=== PATIENT | male | born 1995 | race Caucasian/White ===

== ENCOUNTER 2017-10-02 20:18 | Emergency (ER) | payer BC, OTHER ==
--- NOTE | 2017-10-02 21:38 | EDM.PDOCBH ---
ED HPI GENERAL MEDICAL PROBLEM - General Chief Complaint: Behavioral/Psych Stated Complaint: psych Time Seen by Provider: 10/02/17 20:35 Source of Information: Reports: Patient, Police History Limitations: Reports: No Limitations - History of Present Illness INITIAL COMMENTS - FREE TEXT/NARRATIVE: Patient brought in via PD for evaluation after he called them and stated he wanted to self admit to the [facility]. It is reported that during an argument with his parents, he threatened to leave and hang himself. He currently denies he has suicidal ideations, no plan, no prior attempts. He states he just said that and called the police to get away from the situation as he was very upset, angry, and anxious. History of depression, bipolar disorder, anxiety. Supposed to be taking zyprexa but has not been doing so. Also has a klonopin prescription that is supposed to be BID prn, but according to his mother this is gone. Goes to [facility] for primary care. He appears anxious, and PD are here with him. Onset: Today, Sudden Associated Symptoms: Reports: No Other Symptoms - Related Data Allergies Allergy/AdvReac Type Severity Reaction Status Date / Time No Known Allergies Allergy Verified 10/12/13 19:18 Home Meds: Home Meds EPINEPHrine [Epipen] 0.3 mg IM ASDIRECTED PRN 10/12/13 [History] ClonazePAM [KlonoPIN] 1 tab PO BID PRN 10/02/17 [History] OLANZapine [Olanzapine] 1 tab PO DAILY 10/02/17 [History] Past Medical History - Past Health History Medical/Surgical History: Denies Medical/Surgical History Psychiatric History: Reports: Anxiety, Bipolar, Depression Social & Family History - Tobacco Use Smoking Status *Q: Current Every Day Smoker Years of Tobacco use: 3 Packs/Tins Daily: 0.7 - Alcohol Use Days Per Week of Alcohol Use: 0 - Recreational Drug Use Recreational Drug Use: Yes Drug Use in Last 12 Months: Yes Recreational Drug Type: Reports: Marijuana/Hashish ED ROS GENERAL - Review of Systems Review Of Systems: See Below Constitutional: Reports: No Symptoms HEENT: Reports: No Symptoms Respiratory: Reports: No Symptoms Cardiovascular: Reports: No Symptoms Endocrine: Reports: No Symptoms GI/Abdominal: Reports: No Symptoms : Reports: No Symptoms Musculoskeletal: Reports: No Symptoms Skin: Reports: No Symptoms Neurological: Reports: No Symptoms Psychiatric: Reports: Agitation, Anxiety. Denies: Hallucinations, Homicidal Ideation, Suicidal Ideation Hematologic/Lymphatic: Reports: No Symptoms Immunologic: Reports: No Symptoms ED EXAM, BEHAVIORAL HEALTH - Physical Exam Exam: See Below Exam Limited By: No Limitations General Appearance: Alert, WD/WN, Mild Distress Eye Exam: Bilateral Eye: EOMI, Normal Inspection, PERRL Ears: Normal External Exam, Normal Canal, Hearing Grossly Normal, Normal TMs Nose: Normal Inspection, Normal Mucosa, No Blood Throat/Mouth: Normal Inspection, Normal Lips, Normal Teeth, Normal Gums, Normal Oropharynx, Normal Voice, No Airway Compromise Head: Atraumatic, Normocephalic Neck: Normal Inspection, Supple, Non-Tender, Full Range of Motion Respiratory/Chest: No Respiratory Distress, Lungs Clear, Normal Breath Sounds, No Accessory Muscle Use, Chest Non-Tender Cardiovascular: Normal Peripheral Pulses, Regular Rate, Rhythm, No Edema, No Gallop, No JVD, No Murmur, No Rub GI/Abdominal: Normal Bowel Sounds, Soft, Non-Tender, No Organomegaly, No Distention, No Abnormal Bruit, No Mass Extremities: Normal Inspection, Normal Range of Motion, Non-Tender, Normal Capillary Refill, No Pedal Edema Neurological: Alert, Normal Mood/Affect, CN II-XII Intact, Normal Cognition, Normal Gait, Normal Reflexes, No Motor/Sensory Deficits, Oriented x 3 Psychiatric: Agitated, Paranoid Thoughts. No: Suicidal Plan, Suicidal Thoughts Skin Exam: Warm, Dry, Intact, Normal color, No rash COURSE, BEHAVIORAL HEALTH COMP - Course Vital Signs: Last Vital Signs Temp 36.7 C 10/02/17 20:28 Pulse 80 10/02/17 20:28 Resp 18 10/02/17 20:28 BP 135/92 H 10/02/17 20:28 Pulse Ox 100 10/02/17 20:28 Discharge vs Psych Eval/Treatment:: 10/02/17 22:49 Screener from the [facility] had a 15 minute discussion with Patrick and a safety plan was developed rather than admission to the [facility]. His parents were called to bring him home and the [facility] did leave. Departure - Departure Time of Disposition: 22:00 Disposition: Home, Self-Care 01 Clinical Impression: Anxiety, Depressive disorder, Bipolar 1 disorder, depressed - Discharge Information Instructions: Major Depressive Disorder, Adult, [id number], Olanzapine tablets, Bipolar 1 Disorder Referrals: Tori Hampton NP [Primary Care Provider] - Forms: ED Department Discharge Additional Instructions: You are staying home with your parents. You need to stay home. You need to keep your scheduled doctor appointment on Wednesday for medication review. You also need to go to [facility] Open access which is open week 9-12 am. You need to stay on your zyprexa. You need it, and you need to be taking it to have the benefits. You will not have any effects for at least 30 days. Please contact us with any questions or concerns. - Problem List & Annotations (1) Anxiety SNOMED Code(s): 76383221 Code(s): F41.9 - ANXIETY DISORDER, UNSPECIFIED Status: Acute Priority: Low (2) Bipolar 1 disorder, depressed Status: Acute Priority: Low (3) Depressive disorder SNOMED Code(s): 45133451 Code(s): F32.9 - MAJOR DEPRESSIVE DISORDER, SINGLE EPISODE, UNSPECIFIED Status: Acute Priority: Low - Problem List Review Problem List Initiated/Reviewed/Updated: Yes - Assessment/Plan Assessment:: Depression Plan: You are staying home with your parents. You need to stay home. You need to keep your scheduled doctor appointment on Wednesday for medication review. You also need to go to [facility] Open access which is open week 9-12 am. You need to stay on your zyprexa. You need it, and you need to be taking it to have the benefits. You will not have any effects for at least 30 days. Please contact us with any questions or concerns.
== END 2017-10-02 22:00 | disposition home or self-care (01) ==
LOC: VM.ED 20:18
DX: F31.9 Bipolar disorder, unspecified (principal); F17.210 Nicotine dependence, cigarettes, uncomplicated; Z79.899 Other long term (current) drug therapy
CPT/HCPCS: 99283

== ENCOUNTER 2019-08-23 03:50 | Emergency (ER) | payer MEDICAID, OTHER ==
[2019-08-23] MEDS ORDERED: OLANZapine 10 MG Vial IM ONE (04:03)
[2019-08-23] MEDS ORDERED: OLANZapine 10 MG Vial ONE (04:10)
--- NOTE | 2019-08-23 04:10 | EDM.PDOC ---
ED HPI GENERAL MEDICAL PROBLEM - General Chief Complaint: Behavioral/Psych Stated Complaint: psych eval Time Seen by Provider: 08/23/19 03:55 Source of Information: Reports: Patient History Limitations: Reports: Altered Mental Status, Combative/Threatening - History of Present Illness INITIAL COMMENTS - FREE TEXT/NARRATIVE: Pt. presents to ER via law enforcement. He has been experiencing visual and auditory hallucinations tonight. Pt. has a history of bipolar 1 disorder. He states that he has been hospitalized 5 times in the [facility]. He has not complaints. Denies any chest pain, shortness of breath, abdominal pain or headache. He is currently staying at his parents home. They are who called the police dept. Pt. resides in an apt. in [place]. He does not work. He showed up at his parents house here in [place] the evening before last looking for gas money. Pt. father states that at that time, pt. was experiencing visual and auditory hallucinations. Pt. stated to his Mom that he has "wires in his mouth" that control him. He also is talking about an imagined that owns a bank. He has had this hallucination in the past according to Mom. Mom states that he has a history of bipolar 1, schizophrenia, and severe anxiety. He has a history or meth and marijuana use. No alcohol tonight. He is supposed to be on Invega but has stopped getting this medication. He was started on this during his last hospitalization (3 weeks) at the [facility]. He denies any suicidal ideation, but did make some threatening statements to his family. He has been sneaking around their house. He has a history of showing up in their home with a gun in the past when he has been manic. - Related Data Allergies Allergy/AdvReac Type Severity Reaction Status Date / Time bee venom protein (honey bee) Allergy Other Verified 08/23/19 03:55 peanut Allergy Other Verified 08/23/19 03:55 Home Meds: Home Meds Paliperidone Palmitate [Invega Trinza] 1 dose INJECT ASDIRECTED 08/23/19 [ History] Sennosides [Senna] 8.6 mg PO ASDIRECTED 08/23/19 [History] Past Medical History - Past Health History Medical/Surgical History: Denies Medical/Surgical History Psychiatric History: Reports: Anxiety, Bipolar, Depression, Psych Hospitalization(s) Social & Family History - Tobacco Use Smoking Status *Q: Current Status Unknown ED ROS GENERAL - Review of Systems Review Of Systems: See Below Constitutional: Reports: No Symptoms HEENT: Reports: No Symptoms Respiratory: Reports: No Symptoms Cardiovascular: Reports: No Symptoms Endocrine: Reports: No Symptoms GI/Abdominal: Reports: No Symptoms : Reports: No Symptoms Musculoskeletal: Reports: No Symptoms Skin: Reports: No Symptoms Neurological: Reports: Confusion Psychiatric: Reports: Agitation, Anxiety, Hallucinations Hematologic/Lymphatic: Reports: No Symptoms Immunologic: Reports: No Symptoms ED EXAM, GENERAL - Physical Exam Exam: See Below Exam Limited By: Combative/Threatening General Appearance: Alert, WD/WN, No Apparent Distress Eye Exam: Bilateral Eye: EOMI, Normal Fundi, Normal Inspection, PERRL Ears: Normal External Exam Ear Exam: Bilateral Ear: Auricle Normal, Canal Normal, TM normal Nose: Normal Inspection, Normal Mucosa, No Blood Throat/Mouth: Normal Inspection, No Airway Compromise Head: Atraumatic, Normocephalic Neck: Normal Inspection, Supple, Full Range of Motion Respiratory/Chest: No Respiratory Distress, Normal Breath Sounds, No Accessory Muscle Use Cardiovascular: Normal Peripheral Pulses, Regular Rate, Rhythm, No Edema, No JVD Peripheral Pulses: 4+: Radial (L) GI/Abdominal: Soft, Non-Tender, No Distention, No Mass (Male) Exam: Deferred Rectal (Males) Exam: Deferred Back Exam: Normal Inspection Extremities: Normal Inspection, Normal Range of Motion, Non-Tender, No Pedal Edema, Normal Capillary Refill Neurological: Alert, Oriented, CN II-XII Intact, Normal Cognition, No Motor/ Sensory Deficits Psychiatric: Anxious, Other (visual and auditory hallucinations. Uncooperative. Yelling and raising voice in ER.) Skin Exam: Warm, Dry, Intact, Normal Color, No Rash Lymphatic: No Adenopathy Course - Vital Signs Last Recorded V/S: Last Vital Signs Temp 36.6 C 08/23/19 03:56 Pulse 87 08/23/19 03:56 Resp 16 08/23/19 03:56 BP 122/84 08/23/19 03:56 Pulse Ox 100 08/23/19 03:56 - Orders/Labs/Meds Orders: Active Orders 24 hr Category Date Time Status ACETAMINOPHEN [CHEM] Stat Lab 08/23/19 03:59 Ordered Blood Alcohol [ETHANOL BLOOD MEDICAL] [CHEM] Stat Lab 08/23/19 03:59 Ordered COMPREHENSIVE METABOLIC PN,CMP [CHEM] Stat Lab 08/23/19 03:59 Ordered MAGNESIUM [CHEM] Stat Lab 08/23/19 03:59 Ordered PHOSPHORUS [CHEM] Stat Lab 08/23/19 03:59 Ordered TSH ULTRASENSITIVE [CHEM] Stat Lab 08/23/19 03:59 Ordered UA W/MICROSCOPIC [URIN] Stat Lab 08/23/19 04:00 Ordered URINE DRUG SCREEN,POC [POC] Stat Lab 08/23/19 04:00 Ordered Labs: Laboratory Tests 08/23/19 Range/Units 04:21 WBC 10.0 (4.0-10.0) x10^3/uL RBC 4.96 (4.5-6.0) x10^6/uL Hgb 15.2 (14.0-18.0) g/dL Hct 42.7 (40.0-52.0) % MCV 86.1 (78.0-93.0) fL MCH 30.6 (26.0-32.0) pg MCHC 35.6 (32.0-36.0) g/dL RDW Coeff of Natalie 12.7 (10.0-15.0) % Plt Count 268 (130-400) x10^3/uL Neut % (Auto) 60.4 (50.0-80.0) % Lymph % (Auto) 28.9 (25.0-50.0) % [place] % (Auto) 9.3 (2.0-11.0) % Eos % (Auto) 1.2 (0.0-4.0) % Baso % (Auto) 0.2 (0.2-1.2) % Meds: Medications Discontinued Medications Generic Name Dose Route Start Last Admin Trade Name Freq PRN Reason Stop Dose Admin Olanzapine 10 mg 08/23/19 04:03 Zyprexa IM 08/23/19 04:04 ONETIME ONE Olanzapine Confirm 08/23/19 04:10 Zyprexa Administered 08/23/19 04:11 Dose 10 mg .ROUTE .STK-MED ONE Olanzapine 10 mg 08/23/19 04:11 08/23/19 04:21 Zyprexa PO 08/23/19 04:12 10 mg ONETIME ONE Administration Departure - Departure Time of Disposition: 05:46 Disposition: DC/Tfer to Psych Hosp/Unit 65 Clinical Impression: Hallucinations, Schizophrenia, Severe manic bipolar 1 disorder with psychotic behavior - Discharge Information Forms: ED Department Discharge Sepsis Event Note - Evaluation Sepsis Screening Result: No Definite Risk - Focused Exam Vital Signs: Vital Signs Temp Pulse Resp BP Pulse Ox 08/23/19 03:56 36.6 C 87 16 122/84 100 Date Exam was Performed: 08/23/19 Time Exam was Performed: 04:32 - Problem List Review Problem List Initiated/Reviewed/Updated: Yes - My Orders Last 24 Hours: My Active Orders 08/23/19 03:59 ACETAMINOPHEN [CHEM] Stat Blood Alcohol [ETHANOL BLOOD MEDICAL] [CHEM] Stat COMPREHENSIVE METABOLIC PN,CMP [CHEM] Stat MAGNESIUM [CHEM] Stat PHOSPHORUS [CHEM] Stat TSH ULTRASENSITIVE [CHEM] Stat 08/23/19 04:00 UA W/MICROSCOPIC [URIN] Stat URINE DRUG SCREEN,POC [POC] Stat - Assessment/Plan Last 24 Hours: My Active Orders 08/23/19 03:59 ACETAMINOPHEN [CHEM] Stat Blood Alcohol [ETHANOL BLOOD MEDICAL] [CHEM] Stat COMPREHENSIVE METABOLIC PN,CMP [CHEM] Stat MAGNESIUM [CHEM] Stat PHOSPHORUS [CHEM] Stat TSH ULTRASENSITIVE [CHEM] Stat 08/23/19 04:00 UA W/MICROSCOPIC [URIN] Stat URINE DRUG SCREEN,POC [POC] Stat Plan: Spoke with armando Nassar at [facility]. Pt. will be transported via [facility] directly to [facility] for screening and admission. He is medically cleared at this time. He is positive for methamphetamine and marijuana.
[2019-08-23] MEDS ORDERED: OLANZapine 10 MG Tab PO ONE (04:11)
[2019-08-23 04:54] LABS: ACETAMINOPHEN 0 ug/ml (10-30); ANION GAP 16.9 mmol/L (10-20); CHLORIDE,CL 99 mmol/L (98-107); SODIUM,NA 138 mmol/L (136-145)
[2019-08-23 05:52] LABS: BUPRENORPHINE,URINE NEGATIVE (NEGATIVE); MARIJUANA,URINE POSITIVE (NEGATIVE); METHYLENEDIOXYMETHAMP,UR NEGATIVE (NEGATIVE); PHENCYCLIDINE,URINE NEGATIVE (NEGATIVE)
== END 2019-08-23 06:00 ==
LOC: VM.ED 03:50
DX: F31.2 Bipolar disorder, current episode manic severe with psychotic features (principal); Z91.010 Allergy to peanuts; Z91.030 Bee allergy status
CPT/HCPCS: 36415; 80053; 80305-QW; 81002; 83735; 84100; 84443; 85025; 99285; A9270-GY; G0480

== ENCOUNTER 2020-05-04 14:44 | Emergency (ER) | payer MEDICAID ==
[2020-05-04] MEDS: Haloperidol Lactate 5 MG/ML SDV IM ONE ×2 (14:54→16:29)
[2020-05-04] MEDS: Haloperidol Lactate 5 MG/ML SDV ONE (14:56)
[2020-05-04 16:17] LABS: CHLORIDE,CL 101 mmol/L (98-107); SODIUM,NA 134 mmol/L (136-145)
[2020-05-04 16:19] LABS: ACETAMINOPHEN 0 ug/ml (10-30); ANION GAP 14.5 mmol/L (10-20)
--- NOTE | 2020-05-04 16:38 | EDM.PDOCBH ---
ED HPI GENERAL MEDICAL PROBLEM - General Chief Complaint: Behavioral/Psych Stated Complaint: CLEARENCE Time Seen by Provider: 05/04/20 14:52 Source of Information: Reports: Patient History Limitations: Reports: No Limitations - History of Present Illness INITIAL COMMENTS - FREE TEXT/NARRATIVE: Patient comes emergency department today with the local diver pumper's department after he was [place] acting strangely. According to the diver pumper's he was contacted by a local denise was out working his green and found a car in a trailer parked way out in the back on his property that he was unaware of the vehicle being there. When the Denise approach a vehicle there was a gentleman who was acting erratically outside so he left and called the diver pumper's department. Upon arrival the diver pumper walked up to the vehicle in the trailer and noted that there was someone on the inside clearly having a conversation with someone else. After the diver pumper's department officer open the door and was N he realized that this patient was not talking to anyone but he was talking to himself. Patient was agitated and confused and was brought to the emergency department for evaluation. Upon arrival the patient really has no complaints. He does not understand why he was brought to the emergency department. He is constantly talking to his friend "Oswaldo" who he believes is in the room about why he is in the emergency department. He is somewhat not forthcoming with information and he is cooperative. He has no physical complaints. He denies any recreational drug use or alcohol usage. He really answers little to no questions about his history and just constantly talks to someone who is not in the room. Unable to assess for COVID exposure or symptoms. - Related Data Allergies Allergy/AdvReac Type Severity Reaction Status Date / Time bee venom protein (honey bee) Allergy Other Verified 05/04/20 17:37 peanut Allergy Other Verified 05/04/20 17:37 Home Meds: Home Meds . [No Known Home Meds] 05/04/20 [History] Past Medical History - Past Health History Medical/Surgical History: Denies Medical/Surgical History Psychiatric History: Reports: Anxiety, Bipolar, Depression, Psych Hospitalization(s) Social & Family History - Family History Family Medical History: Noncontributory - Tobacco Use Smoking Status *Q: Never Smoker Second Hand Smoke Exposure: No - Caffeine Use Caffeine Use: Reports: None - Recreational Drug Use Recreational Drug Use: No Other Recreational Drug Type: patient denies drug use ED ROS GENERAL - Review of Systems Review Of Systems: Comprehensive ROS is negative, except as noted in HPI. ED EXAM, BEHAVIORAL HEALTH - Physical Exam Exam: See Below Exam Limited By: No Limitations General Appearance: Alert, WD/WN, Anxious Eye Exam: Bilateral Eye: EOMI Ears: Normal External Exam Nose: Normal Inspection Throat/Mouth: Normal Inspection Head: Atraumatic Neck: Normal Inspection Respiratory/Chest: No Respiratory Distress, Lungs Clear, Normal Breath Sounds, Chest Non-Tender Cardiovascular: Normal Peripheral Pulses, Regular Rate, Rhythm GI/Abdominal: Normal Bowel Sounds, Soft, Non-Tender (Male) Exam: Deferred Rectal (Males) Exam: Deferred Back Exam: Normal Inspection, Full Range of Motion Extremities: Normal Inspection, Normal Range of Motion, Non-Tender, No Pedal Edema, Normal Capillary Refill Neurological: Alert, Normal Mood/Affect, CN II-XII Intact, Normal Reflexes, Oriented x 3 Psychiatric: Alert, Agitated (He is pacing back and forth in the room. He has constant tics and jerks of his feet in his hand. His mood is rather modulated where he is quite agitated at times but he is directable and then at other times he is very calm.), Poor Eye Contact, Flight of Ideas, Tangential Thoughts, Auditory Hallucinations (This patient is constantly talking to either his mother or fill a friend of his in the room. He can see them in the corner and he is having a clear and complete conversation with them.), Visual Hallucinations, Pressured Speech. No: Withdrawn, Homicidal Thoughts, Suicidal Thoughts Skin Exam: Warm, Dry, Intact, Normal color COURSE, BEHAVIORAL HEALTH COMP - Course Vital Signs: Last Vital Signs Temp 97.8 F 05/04/20 14:45 Pulse 96 05/04/20 14:45 Resp 18 05/04/20 14:45 BP 113/67 05/04/20 15:48 Pulse Ox 98 05/04/20 14:45 Orders, Labs, Meds: Active Orders 24 hr Category Date Time Status DRUG SCREEN, URINE (NPL) Stat Lab 05/04/20 16:10 Received SALICYLATE [REF] Stat Lab 05/04/20 15:40 Received Laboratory Tests 05/04/20 05/04/20 05/04/20 Range/Units 15:05 15:40 15:40 WBC 14.3 H (4.0-10.0) x10^3/uL RBC 5.06 (4.5-6.0) x10^6/uL Hgb 15.3 (14.0-18.0) g/dL Hct 43.6 (40.0-52.0) % MCV 86.2 (78.0-93.0) fL MCH 30.2 (26.0-32.0) pg MCHC 35.1 (32.0-36.0) g/dL RDW Coeff of Natalie 13.4 (10.0-15.0) % Plt Count 318 (130-400) x10^3/uL Add Manual Diff Yes Neutrophils % (Manual) 49 L (50-80) % Lymphocytes % (Manual) 35 (25-50) % Monocytes % (Manual) 16 H (2-11) % Platelet Estimate Adequate Sodium 134 L (136-145) mmol/L Potassium 3.5 (3.5-5.1) mmol/L Chloride 101 (98-107) mmol/L Carbon Dioxide 22 (21-32) mmol/L Anion Gap 14.5 (10-20) mmol/L BUN 15 (7-18) mg/dL Creatinine 1.1 (0.70-1.30) mg/dL Est Cr Clr Drug Dosing 106.00 mL/min Estimated GFR (MDRD) > 60 Glucose 65 L (74-106) mg/dL Calcium 9.0 (8.5-10.1) mg/dL Corrected Calcium 8.76 (8.5-10.1) mg/dL Magnesium 2.1 (1.8-2.4) mg/dL Total Bilirubin 1.6 H (0.2-1.0) mg/dL AST 23 (15-37) U/L ALT 27 (16-63) U/L Alkaline Phosphatase 83 (46-116) U/L Total Protein 7.5 (6.4-8.2) g/dL Albumin 4.3 (3.4-5.0) g/dL Globulin 3.2 Albumin/Globulin Ratio 1.34 TSH, Ultra Sensitive 1.539 (0.358-3.74) uIU/mL Urine Color (YELLOW) Urine Appearance (CLEAR) Urine pH (5.0-8.0) Ur Specific [place] Urine Protein (NEGATIVE) mg/dL Urine Glucose (UA) (NEGATIVE) mg/dL Urine Ketones (NEGATIVE) mg/dL Urine Occult Blood (NEGATIVE) Urine Nitrite (NEGATIVE) Urine Bilirubin (NEGATIVE) Urine Urobilinogen (0.2) EU/dL Ur Leukocyte Esterase (NEGATIVE) U Hyaline Cast (Auto) Urine RBC (NOT SEEN) /HPF Urine WBC (NOT SEEN) /HPF Ur Squamous Epith Cells (NEGATIVE) /HPF Amorphous Sediment Urine Bacteria (NEGATIVE) /HPF Urine Mucus (NEGATIVE) /LPF Acetaminophen 0 L (10-30) ug/ml Ethyl Alcohol < 3 (0-3) mg/dL SARS CoV-2 RNA Rapid DEBORAH Negative (NEGATIVE) 05/04/20 Range/Units 16:15 WBC (4.0-10.0) x10^3/uL RBC (4.5-6.0) x10^6/uL Hgb (14.0-18.0) g/dL Hct (40.0-52.0) % MCV (78.0-93.0) fL MCH (26.0-32.0) pg MCHC (32.0-36.0) g/dL RDW Coeff of Natalie (10.0-15.0) % Plt Count (130-400) x10^3/uL Add Manual Diff Neutrophils % (Manual) (50-80) % Lymphocytes % (Manual) (25-50) % Monocytes % (Manual) (2-11) % Platelet Estimate Sodium (136-145) mmol/L Potassium (3.5-5.1) mmol/L Chloride (98-107) mmol/L Carbon Dioxide (21-32) mmol/L Anion Gap (10-20) mmol/L BUN (7-18) mg/dL Creatinine (0.70-1.30) mg/dL Est Cr Clr Drug Dosing mL/min Estimated GFR (MDRD) Glucose (74-106) mg/dL Calcium (8.5-10.1) mg/dL Corrected Calcium (8.5-10.1) mg/dL Magnesium (1.8-2.4) mg/dL Total Bilirubin (0.2-1.0) mg/dL AST (15-37) U/L ALT (16-63) U/L Alkaline Phosphatase (46-116) U/L Total Protein (6.4-8.2) g/dL Albumin (3.4-5.0) g/dL Globulin Albumin/Globulin Ratio TSH, Ultra Sensitive (0.358-3.74) uIU/mL Urine Color Keila H (YELLOW) Urine Appearance Slightly cloudy H (CLEAR) Urine pH 5.5 (5.0-8.0) Ur Specific [place] >=1.030 Urine Protein 30 H (NEGATIVE) mg/dL Urine Glucose (UA) Negative (NEGATIVE) mg/dL Urine Ketones 15 H (NEGATIVE) mg/dL Urine Occult Blood Negative (NEGATIVE) Urine Nitrite Negative (NEGATIVE) Urine Bilirubin Small H (NEGATIVE) Urine Urobilinogen 0.2 (0.2) EU/dL Ur Leukocyte Esterase Negative (NEGATIVE) U Hyaline Cast (Auto) Few Urine RBC 0-5 (NOT SEEN) /HPF Urine WBC 0-5 (NOT SEEN) /HPF Ur Squamous Epith Cells Not seen (NEGATIVE) /HPF Amorphous Sediment Few Urine Bacteria Few H (NEGATIVE) /HPF Urine Mucus Many H (NEGATIVE) /LPF Acetaminophen (10-30) ug/ml Ethyl Alcohol (0-3) mg/dL SARS CoV-2 RNA Rapid DEBORAH (NEGATIVE) Medications Discontinued Medications Generic Name Dose Route Start Last Admin Trade Name Freq PRN Reason Stop Dose Admin Haloperidol Lactate 5 mg 05/04/20 14:52 05/04/20 14:54 Haldol IM 05/04/20 14:53 5 mg STAT ONE Administration Haloperidol Lactate Confirm 05/04/20 15:01 05/04/20 14:56 Haldol Administered 05/04/20 15:02 Not Given Dose 5 mg .ROUTE .STK-MED ONE Haloperidol Lactate 5 mg 05/04/20 16:15 05/04/20 16:29 Haldol IM 05/04/20 16:16 5 mg STAT ONE Administration Olanzapine 5 mg 05/04/20 16:34 05/04/20 16:47 Zyprexa PO 05/04/20 16:35 5 mg NOW STA Administration Olanzapine 5 mg 05/04/20 17:30 05/04/20 17:28 Zyprexa PO 5 mg BID MAGO Administration Re-Assessment/Re-Exam: The patient was getting somewhat more agitated while he was here and we are doing his intake. He was having some physical aggression towards myself. He was directable at times. He was given 5 mg of Haldol IM. Labs were drawn urinalysis as well. We are unable to evaluate for any drugs of abuse as we do not have any drug screens at this time. Patient continued to be somewhat agitated in the room he was given a repeat dose of Haldol 5 mg IM. I called and spoke with Mamta at the [facility]. She accepted the patient into the CRU and we will under their direction also send some Zyprexa to control his agitation over the next couple of days. This is a patient of the [facility] than they have worked with him in the past. Did attempt to back the patient's parents but were on able to. He has a grants to go to the CRU at the [facility]. Departure - Departure Time of Disposition: 17:15 Disposition: DC/Tfer to Psych Hosp/Unit 65 Clinical Impression: Hallucinations - Discharge Information Referrals: PCP,None [Primary Care Provider] - Forms: ED Department Discharge Additional Instructions: With [facility] Department to the CRU under the care of Clayer from the [facility]. Start Zyprexa 5mg by mouth twice daily for the next 3 days. Total of 5 tablets dispensed from the ED for administration at the CRU. Return to the ED if new or worsening symptoms. Sepsis Event Note (ED) - Evaluation Sepsis Screening Result: No Definite Risk - My Orders Last 24 Hours: My Active Orders 05/04/20 15:40 SALICYLATE [REF] Stat 05/04/20 16:10 DRUG SCREEN, URINE (NPL) Stat - Assessment/Plan Last 24 Hours: My Active Orders 05/04/20 15:40 SALICYLATE [REF] Stat 05/04/20 16:10 DRUG SCREEN, URINE (NPL) Stat
[2020-05-04] MEDS: OLANZapine 5 MG Tab PO STA (16:47)
[2020-05-04] MEDS: OLANZapine 5 MG Tab PO SCH (17:28)
== END 2020-05-04 15:28 ==
LOC: VM.ED 14:44
DX: R44.0 Auditory hallucinations (principal); R44.1 Visual hallucinations; R45.1 Restlessness and agitation; Z20.828 Contact with and (suspected) exposure to other viral communicable diseases; Z91.010 Allergy to peanuts; Z91.030 Bee allergy status
CPT/HCPCS: 36415; 80053; 80307; 81001; 83735; 84443; 85025; 96372; 99284; 99285; A9270-GY; J1630; U0002

== ENCOUNTER 2020-06-10 16:01 | Emergency (ER) | payer MEDICARE, MEDICAID ==
--- NOTE | 2020-06-10 16:23 | EDM.PDOC ---
ED HPI GENERAL MEDICAL PROBLEM - General Chief Complaint: Behavioral/Psych Time Seen by Provider: 06/10/20 16:08 Source of Information: Reports: Patient History Limitations: Reports: No Limitations - History of Present Illness INITIAL COMMENTS - FREE TEXT/NARRATIVE: Pt. presents to ER via police. Pt. presented to his parent's residence today, stating that he was "there to kill them". Pt. denies any suicidal or homicidal ideation after he arrived to ER. Pt. has a longstanding history of schizophrenia and bipolar 1 disorder and depression, and has been hospitalized at least 5 times in the [facility] for this. He was last seen in this facility in July with visual and auditory hallucinations. He is overheard making statements of wanting to "burn the house down" by police. Unsure specifically what he means by this. He states that he wants to talk to his psychiatrist, not with ER staff. He previously was on Ivega injections, but states that he has not gone for the injection for several months. He states that he always has hallucinations, but states that they are worse since stopping the medication. He is unable to relate what caused him to stop the medication. On arrival to ER, pt. is in custody of PD. He is mumbling, talking to himself in an imperceptible manner. He is mildly agitated, but able to provide a history. He is alert to time and place, unable to recall the date. He denies any chest pain, shortness of breath, fever, chills, weakness, headache, abdominal pain, cough, or other complaints. Pt. does have an underlying history of drug abuse in the past, including methamphetamine. Associated Symptoms: Denies: Chest Pain, Cough, cough w sputum, Diaphoresis, Fever/Chills, Headaches, Malaise, Nausea/Vomiting, Rash, Seizure, Shortness of Breath, Syncope, Weakness - Related Data Allergies Allergy/AdvReac Type Severity Reaction Status Date / Time bee venom protein (honey bee) Allergy Other Verified 06/10/20 16:16 peanut Allergy Other Verified 06/10/20 16:16 Home Meds: Home Meds . [No Known Home Meds] 05/04/20 [History] Past Medical History - Past Health History Medical/Surgical History: Denies Medical/Surgical History Psychiatric History: Reports: Anxiety, Bipolar, Depression, Psych Hospitalization(s) Social & Family History - Family History Family Medical History: No Pertinent Family History - Caffeine Use Caffeine Use: Reports: None ED ROS GENERAL - Review of Systems Review Of Systems: Comprehensive ROS is negative, except as noted in HPI. ED EXAM, GENERAL - Physical Exam Exam: See Below Exam Limited By: No Limitations General Appearance: Alert, WD/WN, No Apparent Distress Eye Exam: Bilateral Eye: EOMI, PERRL Throat/Mouth: Normal Lips, Normal Oropharynx, No Airway Compromise Head: Atraumatic, Normocephalic Neck: Normal Inspection, Supple, Non-Tender, Full Range of Motion Respiratory/Chest: No Respiratory Distress, Lungs Clear, No Accessory Muscle Use, Chest Non-Tender Cardiovascular: Normal Peripheral Pulses, Regular Rate, Rhythm GI/Abdominal: Soft, Non-Tender, No Distention, No Mass (Male) Exam: Deferred Rectal (Males) Exam: Deferred Extremities: Normal Inspection, Normal Range of Motion, Non-Tender, No Pedal Edema, Normal Capillary Refill Neurological: Alert, Oriented, CN II-XII Intact, Normal Cognition, Normal Gait, Normal Reflexes, No Motor/Sensory Deficits Psychiatric: Anxious, Other (See HPI. mildly agitated. Auditory and visual hallucinations. ) Skin Exam: Warm, Dry, Intact, Normal Color, No Rash Lymphatic: No Adenopathy Course - Vital Signs Last Recorded V/S: Last Vital Signs Temp 36.8 C 06/10/20 16:05 Pulse 116 H 06/10/20 16:05 Resp 20 06/10/20 16:05 BP 124/88 06/10/20 16:05 Pulse Ox 96 06/10/20 16:05 - Orders/Labs/Meds Orders: Active Orders 24 hr Category Date Time Status UA W/MICROSCOPIC [URIN] Stat Lab 06/10/20 19:23 Received Labs: Laboratory Tests 06/10/20 06/10/20 06/10/20 Range/Units 16:16 16:16 16:16 WBC 10.1 H (4.0-10.0) x10^3/uL RBC 5.51 (4.5-6.0) x10^6/uL Hgb 16.5 (14.0-18.0) g/dL Hct 47.4 (40.0-52.0) % MCV 86.0 (78.0-93.0) fL MCH 29.9 (26.0-32.0) pg MCHC 34.8 (32.0-36.0) g/dL RDW Coeff of Natalie 13.4 (10.0-15.0) % Plt Count 338 (130-400) x10^3/uL Neut % (Auto) 57.3 (50.0-80.0) % Lymph % (Auto) 30.7 (25.0-50.0) % Traill % (Auto) 10.5 (2.0-11.0) % Eos % (Auto) 1.1 (0.0-4.0) % Baso % (Auto) 0.4 (0.2-1.2) % PT 10.4 (9.5-12.3) SEC INR 1.0 L (2.0-3.5) Sodium 137 (136-145) mmol/L Potassium 3.9 (3.5-5.1) mmol/L Chloride 99 (98-107) mmol/L Carbon Dioxide 22 (21-32) mmol/L Anion Gap 19.9 (10-20) mmol/L BUN 16 (7-18) mg/dL Creatinine 1.2 (0.70-1.30) mg/dL Est Cr Clr Drug Dosing TNP Estimated GFR (MDRD) > 60 Glucose 91 (74-106) mg/dL Calcium 9.5 (8.5-10.1) mg/dL Corrected Calcium 9.10 (8.5-10.1) mg/dL Magnesium 2.1 (1.8-2.4) mg/dL Total Bilirubin 1.7 H (0.2-1.0) mg/dL AST 22 (15-37) U/L ALT 27 (16-63) U/L Alkaline Phosphatase 82 (46-116) U/L Total Protein 8.1 (6.4-8.2) g/dL Albumin 4.5 (3.4-5.0) g/dL Globulin 3.6 Albumin/Globulin Ratio 1.25 TSH, Ultra Sensitive 1.451 (0.358-3.74) uIU/mL Urine Color (YELLOW) Urine Appearance (CLEAR) Urine pH (5.0-8.0) Ur Specific Sanford Urine Protein (NEGATIVE) mg/dL Urine Glucose (UA) (NEGATIVE) mg/dL Urine Ketones (NEGATIVE) mg/dL Urine Occult Blood (NEGATIVE) Urine Nitrite (NEGATIVE) Urine Bilirubin (NEGATIVE) Urine Urobilinogen (0.2) EU/dL Ur Leukocyte Esterase (NEGATIVE) Urine Opiates Screen (NEGATIVE) Ur Buprenorphine Scrn (NEGATIVE) Ur Oxycodone Screen (NEGATIVE) Ur EDDP (Meth Metab) (NEGATIVE) Urine Methadone Screen (NEGATIVE) Acetaminophen 0 L (10-30) ug/ml Ur Barbituates Screen (NEGATIVE) Ur Tricyclics Screen (NEGATIVE) Ur Phencyclidine Scrn (NEGATIVE) Ur Amphetamines Screen (NEGATIVE) U Methamphetamines Scrn (NEGATIVE) Urine MDMA Screen (NEGATIVE) U Benzodiazepines Scrn (NEGATIVE) Urine Cocaine Screen (NEGATIVE) U Marijuana (THC) Screen (NEGATIVE) Ethyl Alcohol 3 (0-3) mg/dL SARS CoV-2 RNA Rapid DEBORAH (NEGATIVE) 06/10/20 06/10/20 06/10/20 Range/Units 16:25 19:23 19:23 WBC (4.0-10.0) x10^3/uL RBC (4.5-6.0) x10^6/uL Hgb (14.0-18.0) g/dL Hct (40.0-52.0) % MCV (78.0-93.0) fL MCH (26.0-32.0) pg MCHC (32.0-36.0) g/dL RDW Coeff of Natalie (10.0-15.0) % Plt Count (130-400) x10^3/uL Neut % (Auto) (50.0-80.0) % Lymph % (Auto) (25.0-50.0) % Traill % (Auto) (2.0-11.0) % Eos % (Auto) (0.0-4.0) % Baso % (Auto) (0.2-1.2) % PT (9.5-12.3) SEC INR (2.0-3.5) Sodium (136-145) mmol/L Potassium (3.5-5.1) mmol/L Chloride (98-107) mmol/L Carbon Dioxide (21-32) mmol/L Anion Gap (10-20) mmol/L BUN (7-18) mg/dL Creatinine (0.70-1.30) mg/dL Est Cr Clr Drug Dosing Estimated GFR (MDRD) Glucose (74-106) mg/dL Calcium (8.5-10.1) mg/dL Corrected Calcium (8.5-10.1) mg/dL Magnesium (1.8-2.4) mg/dL Total Bilirubin (0.2-1.0) mg/dL AST (15-37) U/L ALT (16-63) U/L Alkaline Phosphatase (46-116) U/L Total Protein (6.4-8.2) g/dL Albumin (3.4-5.0) g/dL Globulin Albumin/Globulin Ratio TSH, Ultra Sensitive (0.358-3.74) uIU/mL Urine Color Light yellow (YELLOW) Urine Appearance Slightly cloudy H (CLEAR) Urine pH 5.5 (5.0-8.0) Ur Specific Sanford <=1.005 Urine Protein Negative (NEGATIVE) mg/dL Urine Glucose (UA) Negative (NEGATIVE) mg/dL Urine Ketones 40 H (NEGATIVE) mg/dL Urine Occult Blood Moderate H (NEGATIVE) Urine Nitrite Negative (NEGATIVE) Urine Bilirubin Negative (NEGATIVE) Urine Urobilinogen 0.2 (0.2) EU/dL Ur Leukocyte Esterase Negative (NEGATIVE) Urine Opiates Screen Negative (NEGATIVE) Ur Buprenorphine Scrn Negative (NEGATIVE) Ur Oxycodone Screen Negative (NEGATIVE) Ur EDDP (Meth Metab) Negative (NEGATIVE) Urine Methadone Screen Negative (NEGATIVE) Acetaminophen (10-30) ug/ml Ur Barbituates Screen Negative (NEGATIVE) Ur Tricyclics Screen Negative (NEGATIVE) Ur Phencyclidine Scrn Negative (NEGATIVE) Ur Amphetamines Screen Negative (NEGATIVE) U Methamphetamines Scrn Positive H (NEGATIVE) Urine MDMA Screen Negative (NEGATIVE) U Benzodiazepines Scrn Negative (NEGATIVE) Urine Cocaine Screen Negative (NEGATIVE) U Marijuana (THC) Screen Negative (NEGATIVE) Ethyl Alcohol (0-3) mg/dL SARS CoV-2 RNA Rapid DEBORAH Negative (NEGATIVE) Meds: Medications Discontinued Medications Generic Name Dose Route Start Last Admin Trade Name Freq PRN Reason Stop Dose Admin Olanzapine 10 mg 06/10/20 16:29 06/10/20 16:37 Zyprexa IM 06/10/20 16:30 10 mg ONETIME ONE Administration Departure - Departure Time of Disposition: 19:45 Disposition: DC/Tfer to Psych Hosp/Unit 65 Clinical Impression: Schizophrenia, Bipolar 1 disorder - Discharge Information Referrals: PCP,None [Primary Care Provider] - Forms: ED Department Discharge Sepsis Event Note (ED) - Focused Exam Vital Signs: Vital Signs Temp Pulse Resp BP Pulse Ox 06/10/20 16:05 36.8 C 116 H 20 124/88 96 - Problem List Review Problem List Initiated/Reviewed/Updated: Yes - My Orders Last 24 Hours: My Active Orders 06/10/20 19:23 UA W/MICROSCOPIC [URIN] Stat - Assessment/Plan Last 24 Hours: My Active Orders 06/10/20 19:23 UA W/MICROSCOPIC [URIN] Stat Plan: Pt. transferred to [facility] via police. Pt. accepted by Santana Kaplan at [facility]. All questions were answered.
[2020-06-10] MEDS ORDERED: OLANZapine 10 MG Vial IM ONE (16:29)
[2020-06-10 16:53] LABS: ACETAMINOPHEN 0 ug/ml (10-30); ANION GAP 19.9 mmol/L (10-20); CHLORIDE,CL 99 mmol/L (98-107); SODIUM,NA 137 mmol/L (136-145)
[2020-06-10 19:30] LABS: BUPRENORPHINE,URINE NEGATIVE (NEGATIVE); MARIJUANA,URINE NEGATIVE (NEGATIVE); METHYLENEDIOXYMETHAMP,UR NEGATIVE (NEGATIVE)
[2020-06-10 19:31] LABS: PHENCYCLIDINE,URINE NEGATIVE (NEGATIVE)
== END 2020-06-10 19:51 ==
LOC: VM.ED 16:01
DX: F20.9 Schizophrenia, unspecified (principal); F31.9 Bipolar disorder, unspecified; Z20.828 Contact with and (suspected) exposure to other viral communicable diseases; Z91.030 Bee allergy status
CPT/HCPCS: 36415; 80053; 80305; 80307; 81001; 83735; 84443; 85025; 85610; 96372; 99284; 99285; J3490; U0002

== ENCOUNTER 2022-02-08 13:57 | Emergency (ER) | payer MEDICARE, MEDICAID ==
[2022-02-08] MEDS ORDERED: Sodium Chloride 0.9% 10 ML Syringe FLUSH PRN (14:19)
[2022-02-08] MEDS: Sodium Chloride 0.9% 1,000 ML IV ONE (14:41)
[2022-02-08 15:12] LABS: ANION GAP 14.1 mmol/L (5-15)
[2022-02-08] MEDS: D5 1/2 NS w/ 20 mEq/L KCl 1,000 ML IV SCH (15:54)
[2022-02-08 17:14] LABS: BARBITURATE SCREEN,URINE NEGATIVE (NEGATIVE); BENZODIAZEPINES SCREEN,URINE NEGATIVE (NEGATIVE); METHAMPHETAMINE SCREEN, URINE POSITIVE (NEGATIVE); THC SCREEN,URINE 50 NG/ML POSITIVE (NEGATIVE)
[2022-02-08 17:15] LABS: BUPRENORPHINE SCREEN,URINE NEGATIVE (NEGATIVE)
[2022-02-08 17:33] LABS: CORONAVIRUS COVID-19 NAA NEGATIVE (NEGATIVE); RESPIRATORY SYNCYTIAL VIR NAA NEGATIVE (NEGATIVE)
[2022-02-08] MEDS: LORazepam 2 MG/ML SDV IVPUSH ONE (17:52)
== END 2022-02-08 18:05 ==
LOC: VM.ED 13:57
DX: F20.9 Schizophrenia, unspecified (principal); F19.20 Other psychoactive substance dependence, uncomplicated; Z91.19 Patient's noncompliance with other medical treatment and regimen; Z91.010 Allergy to peanuts; Z91.030 Bee allergy status; Z20.822 Contact with and (suspected) exposure to COVID-19
CPT/HCPCS: 0241U; 51702; 71045; 80053; 80143; 80179; 80305-QW; 81001; 83605; 83735; 85025; 93005; 96361; 96365; 96366; 96375; 99285-25; J2060; J3480; J7030

== ENCOUNTER 2023-10-15 15:16 | Emergency (ER) | payer MEDICARE, MEDICAID ==
[2023-10-15 15:47] LABS: BASOPHILS PERCENT AUTO 0.4 % (0.2-1.2); EOSINOPHILS ABSOLUTE AUTO 0.3 x10^3/uL (0.0-0.5); EOSINOPHILS PERCENT AUTO 2.6 % (0.0-4.0); HEMATOCRIT 46.8 % (40.0-52.0); HEMOGLOBIN 16.5 g/dL (14.0-18.0); IMMATURE GRAN ABSOLUTE AUTO 0.03 x10^3/uL (0.00-0.07); LYMPHOCYTES ABSOLUTE AUTO 2.5 x10^3/uL (1.0-4.8); LYMPHOCYTES PERCENT AUTO 25.5 % (25.0-50.0); MEAN CORPUSCULAR HEMOGLOBIN 29.9 pg (26.0-32.0); MEAN CORPUSCULAR HGB CONC 35.3 g/dL (32.0-36.0); MEAN CORPUSCULAR VOLUME 84.9 fL (78.0-93.0); MONOCYTES ABSOLUTE AUTO 0.9 x10^3/uL (0.0-0.8); MONOCYTES PERCENT AUTO 9.7 % (2.0-11.0); NEUTROPHILS PERCENT AUTO 61.5 % (50.0-80.0); PLATELET COUNT,PLT 316 x10^3/uL (130-400); RED BLOOD CELL COUNT 5.51 x10^6/uL (4.5-6.0); WHITE BLOOD CELL COUNT,WBC 9.7 x10^3/uL (4.0-10.0)
[2023-10-15 16:13] LABS: A/G RATIO 1.05; ALANINE AMINOTRANSFERASE,ALT 110 U/L (16-63); ALBUMIN 3.9 g/dL (3.4-5.0); ALKALINE PHOSPHATASE 108 U/L (46-116); ASPARTATE AMNIOTRANSFERASE,AST 71 U/L (15-37); BILIRUBIN TOTAL 0.6 mg/dL (0.2-1.0); BLOOD UREA NITROGEN,BUN 6 mg/dL (7-18); CALCIUM 9.8 mg/dL (8.5-10.1); CARBON DIOXIDE,CO2 29 mmol/L (21-32); CHLORIDE,CL 97 mmol/L (98-107); CREATININE 0.9 mg/dL (0.70-1.30); EST CRCL DRUG DOSING (CG) 125.05 mL/min; GLUCOSE RANDOM 126 mg/dL (70-99); MAGNESIUM 2.1 mg/dL (1.8-2.4); PROTEIN TOTAL,TP 7.6 g/dL (6.4-8.2); SODIUM,NA 139 mmol/L (136-145); TSH ULTRASENSITIVE 1.229 uIU/mL (0.358-3.74)
[2023-10-15 16:14] LABS: C-REACTIVE PROTEIN < 0.50 mg/dL (<=0.50); ESTIMATED GFR 119 mL/min (>=60); ETHANOL BLOOD MEDICAL < 3 mg/dL (0-3)
[2023-10-15 16:15] LABS: ANION GAP 15.5 mmol/L (5-15); POTASSIUM,K 2.5 mmol/L (3.5-5.1)
== END 2023-10-15 17:17 ==
LOC: EEVIPCON 15:16 → VM.ED 15:16 → SUPCPDRO 15:16 → VM.ED 17:17
DX: Z02.89 Encounter for other administrative examinations (principal); F20.9 Schizophrenia, unspecified; Z91.030 Bee allergy status; Z91.010 Allergy to peanuts
CPT/HCPCS: 36415; 80053; 80143; 80307; 82140; 83735; 84443; 85025; 86140; 99285